=== PATIENT | female | born 1930 | race Caucasian/White ===

== ENCOUNTER 2021-02-03 18:21 | Inpatient (IN) ==
[2021-02-04] MEDS ORDERED: VISINE TEARS DROPS 15 ML BOTH EYES PRN (15:21)
[2021-02-04] MEDS ORDERED: GuaiFENesin Liq 200 MG/10 ML UDC PO PRN (15:21)
[2021-02-04] MEDS ORDERED: Ipratropium/Albuterol Neb 3 ML IH PRN (22:38)
[2021-02-04] MEDS ORDERED: Ondansetron ODT 4 MG TAB.RAPDIS SL PRN (22:42)
[2021-02-04] MEDS: *HR* HYDROcodone/Acet 10/325 mg TABLET PO PRN (23:22)
[2021-02-04] MEDS: (Preservision Areds 2) PO SCH (23:28)
[2021-02-04] MEDS: Latanoprost 2.5 ML BOTTLE BOTH EYES SCH (23:29)
[2021-02-04] MEDS: Apixaban 5 MG TABLET PO SCH (23:34)
[2021-02-05 06:30] LABS: Basophils % 0.6 %; Hematocrit 32.3 % (35.3-44.9); Hemoglobin 10.3 g/dL (11.5-15.4); Immature Granulocytes % 1.1 % (0-4); Lymphocytes # 1.2 K/mcL (0.6-4.6); Lymphocytes % 22.8 %; Mean Corpuscular HGB Conc 31.9 g/dL (31.6-35.5); Mean Corpuscular Hemoglobin 30.2 pg (28.0-33.3); Mean Corpuscular Volume 94.7 fL (83.0-100.0); Mean Platelet Volume 9.8 fL (9.4-12.4); Monocytes # 0.6 K/mcL (0.0-1.3); Monocytes % 11.4 %; Neutrophils # 3.4 K/mcL (1.6-8.9); Platelet Count 158 K/mcL (140-400); Red Blood Count 3.41 M/mcL (3.82-4.97); Red Cell Distribution Width 13.9 % (11.5-14.5); Segmented Neutrophils % 64.1 %; White Blood Count 5.4 K/mcL (4.3-11.1)
[2021-02-05 06:59] LABS: Calcium 8.7 mg/dL (8.6-10.3); Potassium 5.3 mEq/L (3.5-5.1)
[2021-02-05] MEDS: Vitamin B Complex/Vit C/Vit E 1 EACH TABLET PO SCH (08:08)
[2021-02-05] MEDS: Apixaban 5 MG TABLET PO SCH ×2 (08:08→21:26)
[2021-02-05] MEDS: (Preservision Areds 2) PO SCH ×2 (08:09→21:30)
[2021-02-05] MEDS: DilTIAZem CD (24hr) 180 MG CAP.ER.24H PO SCH (08:09)
[2021-02-05] MEDS: Aspirin Enteric Coated 81 MG Tablet PO SCH (08:24)
[2021-02-05] MEDS: *HR* HYDROcodone/Acet 10/325 mg TABLET PO PRN (08:24)
[2021-02-05] MEDS: Budesonide/Formoterol 160/4.5 1 PUFF INH IH SCH ×2 (11:17→22:02)
[2021-02-05 17:07] LABS: Calcium 8.7 mg/dL (8.6-10.3); Potassium 4.3 mEq/L (3.5-5.1)
[2021-02-05] MEDS: Latanoprost 2.5 ML BOTTLE BOTH EYES SCH (21:29)
[2021-02-06 08:15] LABS: BUN/Creatinine Ratio 43 (6-26); Blood Urea Nitrogen 44 mg/dL (8-23); Calcium 8.7 mg/dL (8.6-10.3); Carbon Dioxide 27 mEq/L (23-29); Chloride 107 mEq/L (98-107); Glucose 89 mg/dL (70-105); Osmolality,Calculated 303 (280-300); Potassium 4.1 mEq/L (3.5-5.1); Sodium 141 mEq/L (136-145); eGFR For African Americans > 60 (> 60); eGFR For Non-African Americans 51 (> 60)
[2021-02-06] MEDS: *HR* HYDROcodone/Acet 10/325 mg TABLET PO PRN (09:45)
[2021-02-06] MEDS: Aspirin Enteric Coated 81 MG Tablet PO SCH (09:45)
[2021-02-06] MEDS: Vitamin B Complex/Vit C/Vit E 1 EACH TABLET PO SCH (09:45)
[2021-02-06] MEDS: DilTIAZem CD (24hr) 180 MG CAP.ER.24H PO SCH (09:46)
[2021-02-06] MEDS: Apixaban 5 MG TABLET PO SCH ×2 (09:46→20:50)
[2021-02-06] MEDS: (Preservision Areds 2) PO SCH ×2 (09:46→20:53)
[2021-02-06] MEDS: Budesonide/Formoterol 160/4.5 1 PUFF INH IH SCH ×2 (11:00→22:33)
[2021-02-06] MEDS: Latanoprost 2.5 ML BOTTLE BOTH EYES SCH (20:52)
[2021-02-07] MEDS ORDERED: Acetaminophen 325 MG TABLET PO PRN (10:32)
[2021-02-07] MEDS: Vitamin B Complex/Vit C/Vit E 1 EACH TABLET PO SCH (10:39)
[2021-02-07] MEDS: Aspirin Enteric Coated 81 MG Tablet PO SCH (10:40)
[2021-02-07] MEDS: DilTIAZem CD (24hr) 180 MG CAP.ER.24H PO SCH (10:40)
[2021-02-07] MEDS: Apixaban 5 MG TABLET PO SCH ×2 (10:40→20:27)
[2021-02-07] MEDS: (Preservision Areds 2) PO SCH ×2 (10:43→20:27)
[2021-02-07] MEDS: Budesonide/Formoterol 160/4.5 1 PUFF INH IH SCH ×2 (11:01→21:48)
[2021-02-07] MEDS: Latanoprost 2.5 ML BOTTLE BOTH EYES SCH (20:27)
[2021-02-08] MEDS: *HR* HYDROcodone/Acet 10/325 mg TABLET PO PRN ×2 (10:36→21:04)
[2021-02-08] MEDS: Vitamin B Complex/Vit C/Vit E 1 EACH TABLET PO SCH (10:37)
[2021-02-08] MEDS: DilTIAZem CD (24hr) 180 MG CAP.ER.24H PO SCH (10:37)
[2021-02-08] MEDS: Apixaban 5 MG TABLET PO SCH ×2 (10:37→21:04)
[2021-02-08] MEDS: Aspirin Enteric Coated 81 MG Tablet PO SCH (10:37)
[2021-02-08] MEDS: (Preservision Areds 2) PO SCH ×2 (10:38→21:05)
[2021-02-08] MEDS: Budesonide/Formoterol 160/4.5 1 PUFF INH IH SCH ×2 (10:48→20:59)
[2021-02-08] MEDS: Latanoprost 2.5 ML BOTTLE BOTH EYES SCH (23:22)
[2021-02-09] MEDS: Budesonide/Formoterol 160/4.5 1 PUFF INH IH SCH ×2 (09:44→21:41)
[2021-02-09] MEDS: Aspirin Enteric Coated 81 MG Tablet PO SCH (10:20)
[2021-02-09] MEDS: DilTIAZem CD (24hr) 180 MG CAP.ER.24H PO SCH (10:20)
[2021-02-09] MEDS: *HR* HYDROcodone/Acet 10/325 mg TABLET PO PRN (10:21)
[2021-02-09] MEDS: Apixaban 5 MG TABLET PO SCH ×2 (10:21→21:03)
[2021-02-09] MEDS: Vitamin B Complex/Vit C/Vit E 1 EACH TABLET PO SCH (10:21)
[2021-02-09] MEDS: (Preservision Areds 2) PO SCH ×2 (10:21→21:39)
[2021-02-09] MEDS: Latanoprost 2.5 ML BOTTLE BOTH EYES SCH (21:04)
[2021-02-10] MEDS: *HR* HYDROcodone/Acet 10/325 mg TABLET PO PRN (04:10)
[2021-02-10 07:27] VITALS: BP 112/63; PULSE 53; TEMP 98.4
[2021-02-10] MEDS: Aspirin Enteric Coated 81 MG Tablet PO SCH (09:20)
[2021-02-10] MEDS: Apixaban 5 MG TABLET PO SCH (09:20)
[2021-02-10] MEDS: DilTIAZem CD (24hr) 180 MG CAP.ER.24H PO SCH (09:20)
[2021-02-10] MEDS: Vitamin B Complex/Vit C/Vit E 1 EACH TABLET PO SCH (09:20)
[2021-02-10] MEDS: (Preservision Areds 2) PO SCH (09:21)
[2021-02-10] MEDS: Budesonide/Formoterol 160/4.5 1 PUFF INH IH SCH (09:27)
[2021-02-10 09:30] VITALS: RESP 18; O2SAT 98
== END 2021-02-10 10:38 | disposition home health service (06) | DRG 560 ==
LOC: INPPIK 02-04 21:44
PROVIDERS: ADMIT Internal Medicine; ATTEND Internal Medicine